=== PATIENT | female | born 1945 | race Caucasian/White ===

== ENCOUNTER 2024-09-17 13:55 | Inpatient (IN) | payer MEDICARE, OTHER ==
[~2024-09-17] VITALS: Ht 170.2 cm; Wt 59.0 kg
[2024-09-17] MEDS ORDERED: RISP1TAB7 PO (14:13)
[2024-09-17] MEDS ORDERED: DOCU100T2 PO (14:13)
[2024-09-17] MEDS ORDERED: LORA10TA7 PO (14:13)
[2024-09-17] MEDS ORDERED: DIVA500T4 PO (14:15)
[2024-09-17] MEDS ORDERED: DIVA250T4 PO (14:15)
[2024-09-17] MEDS ORDERED: PHEN100C12 PO (14:15)
[2024-09-17] MEDS ORDERED: AMLO10TA59 PO (14:16)
[2024-09-17] MEDS ORDERED: BENZ0.5T43 PO (14:16)
[2024-09-17] MEDS ORDERED: LOSA50TA39 PO (14:16)
[2024-09-17] MEDS ORDERED: MAGN400O6 PO (14:18)
[2024-09-17] MEDS ORDERED: DIPH-873 PO (14:18)
[2024-09-17] MEDS ORDERED: MAG360OR83 PO (14:18)
[2024-09-17] MEDS ORDERED: MULT1CAP34 PO (14:20)
[2024-09-17] MEDS ORDERED: ACET325T53 PO (14:20)
[2024-09-17] MEDS ORDERED: SENN-261 PO (14:20)
[2024-09-17] MEDS: FAMOTIDINE. 20 MG/2 ML VIAL IV ONE (14:43)
[2024-09-17] MEDS: IV NORMAL SALINE 500 ML BAG IV ONE (14:43)
[2024-09-17] MEDS ORDERED: diphenhydrAMINE 50 MG/1 ML VIAL ONE (14:43)
[2024-09-17] MEDS: diphenhydrAMINE 50 MG/1 ML VIAL IV ONE (14:43)
[2024-09-17] MEDS ORDERED: FAMOTIDINE. 20 MG/2 ML VIAL IV ONE (14:44)
[2024-09-17 14:59] LABS: PLATELET COUNT (AUTO) 271 K/uL (179-408); RED BLOOD CELL COUNT(AUTO) 3.68 MIL/uL (3.63-4.92); RED CELL DISTRIBUTION WIDTH 13.9 % (12.3-17.7); WHITE BLOOD COUNT (AUTO) 7.3 K/uL (3.8-11.8)
[2024-09-17 15:08] LABS: CREATININE 0.6 mg/dL (0.6-1.3); SODIUM SERUM 146 mmol/L (136-145); UREA NITROGEN, BLOOD 11 mg/dL (7-18)
[2024-09-17 15:14] LABS: ASPARTATE AMINOTRANSFERASE 23 U/L (15-37); TOTAL PROTEIN, SERUM 6.7 g/dL (6.4-8.2)
[2024-09-17 17:24] VITALS: BP 155/71; TEMP 98.2; O2SAT 98
[2024-09-17] MEDS ORDERED: DIVA-78 PO (18:24)
[2024-09-17] MEDS ORDERED: ACETAMINOPHEN 325 MG TABLET-SA PATIENTS-PAIN ONLY PO PRN (18:45)
[2024-09-17] MEDS ORDERED: MAG HYDROX/AL HYDROX/SIMETH 30 ML LIQUID UDC PO PRN (18:45)
[2024-09-17] MEDS ORDERED: MAGNESIUM HYDROXIDE 30 ML LIQUID UDC PO PRN (18:45)
[2024-09-17] MEDS: FUROSEMIDE 20 MG/2 ML VIAL IV ONE ×2 (19:00→20:39)
[2024-09-17] MEDS ORDERED: ACETAMINOPHEN 325 MG TABLET PO PRN (19:00)
[2024-09-17 19:18] VITALS: BP 150/75; TEMP 98.3; O2SAT 100
[2024-09-17] MEDS: BENZTROPINE MESYLATE 0.5 MG TABLET PO SCH (20:41)
[2024-09-17] MEDS: REMEDY ESSENTIAL ZINC PASTE 113 GM TOP SCH (20:41)
[2024-09-17] MEDS: ENOXAPARIN SODIUM 40 MG/0.4 ML DISP.SYRIN SQ SCH (20:41)
[2024-09-17] MEDS: PHENYTOIN SODIUM EXTENDED 100 MG CAPSULE.SA PO SCH (20:41)
[2024-09-18 06:24] VITALS: BP 147/64; TEMP 97.7; O2SAT 99
[2024-09-18 07:11] LABS: PLATELET COUNT (AUTO) 251 K/uL (179-408); RED BLOOD CELL COUNT(AUTO) 3.28 MIL/uL (3.63-4.92); RED CELL DISTRIBUTION WIDTH 13.4 % (12.3-17.7); WHITE BLOOD COUNT (AUTO) 5.4 K/uL (3.8-11.8)
[2024-09-18 08:00] LABS: ASPARTATE AMINOTRANSFERASE 8 U/L (15-37); CREATININE 0.4 mg/dL (0.6-1.3); SODIUM SERUM 147 mmol/L (136-145); TOTAL PROTEIN, SERUM 5.8 g/dL (6.4-8.2); UREA NITROGEN, BLOOD 9 mg/dL (7-18)
[2024-09-18 08:18] LABS: VALPROIC ACID 31 ug/mL (50-100)
[2024-09-18] MEDS ORDERED: MULTIVITAMINS PO SCH (09:00)
[2024-09-18] MEDS: AMLODIPINE 10 MG TABLET PO SCH (09:06)
[2024-09-18] MEDS: DIVALPROEX 250 MG TABLET.DR PO SCH (09:06)
[2024-09-18] MEDS: LOSARTAN POTASSIUM 50 MG TABLET PO SCH (09:06)
[2024-09-18] MEDS: DOCUSATE SODIUM 100 MG CAPSULE PO SCH (09:06)
[2024-09-18] MEDS: DIVALPROEX 500 MG TABLET.DR PO SCH (09:06)
[2024-09-18] MEDS: LORATADINE 10 MG TABLET PO SCH (09:07)
[2024-09-18] MEDS: MULTIVITAMINS,THERAPEUTIC TABLET PO SCH (09:07)
[2024-09-18] MEDS: SENNOSIDES 1 TABLET PO SCH (09:07)
[2024-09-18] MEDS: POTASSIUM CHLORIDE 20 MEQ TAB.PRT.SR PO ONE (09:15)
[2024-09-18 10:44] VITALS: BP 126/65; TEMP 98; O2SAT 98
[2024-09-18 16:14] VITALS: BP 116/64; TEMP 98.6; O2SAT 96
[2024-09-18 19:34] VITALS: BP 129/58; TEMP 98.1; O2SAT 95
[2024-09-19 06:01] VITALS: BP 133/72; TEMP 97.8; O2SAT 97
[2024-09-19 06:57] LABS: PLATELET COUNT (AUTO) 252 K/uL (179-408); RED BLOOD CELL COUNT(AUTO) 3.28 MIL/uL (3.63-4.92); RED CELL DISTRIBUTION WIDTH 13.7 % (12.3-17.7); WHITE BLOOD COUNT (AUTO) 6.6 K/uL (3.8-11.8)
[2024-09-19 07:13] LABS: CREATININE 0.5 mg/dL (0.6-1.3); SODIUM SERUM 149 mmol/L (136-145); UREA NITROGEN, BLOOD 8 mg/dL (7-18)
[2024-09-19 10:48] VITALS: BP 155/76; TEMP 97.8; O2SAT 99
[2024-09-19] MEDS: ENSURE ENLIVE (VAN) 240 ML LIQUID PO SCH (13:00)
[2024-09-19 16:04] VITALS: BP 150/72; TEMP 98; O2SAT 97
[2024-09-19] MEDS ORDERED: PERMETHRIN 5% CREAM 60 GM TUBE TP ONE (17:00)
[2024-09-19 19:30] VITALS: BP 140/68; TEMP 98.7; O2SAT 93
[2024-09-19] MEDS: MUPIROCIN 2% OINT 22 GM TUBE NS SCH (21:00)
[2024-09-19] MEDS: PERMETHRIN 5% CREAM 60 GM TUBE TP ONE (22:42)
[2024-09-19] MEDS: DIVALPROEX 250 MG TABLET.DR PO SCH (22:43)
[2024-09-19] MEDS: DIVALPROEX 500 MG TABLET.DR PO SCH (22:43)
[2024-09-19] MEDS ORDERED: MUPIROCIN 2% OINT 22 GM TUBE ONE (22:47)
[2024-09-20 05:43] VITALS: BP 121/62; TEMP 98.2; O2SAT 97
[2024-09-20 06:35] LABS: PLATELET COUNT (AUTO) 280 K/uL (179-408); RED BLOOD CELL COUNT(AUTO) 3.54 MIL/uL (3.63-4.92); RED CELL DISTRIBUTION WIDTH 13.7 % (12.3-17.7); WHITE BLOOD COUNT (AUTO) 7.3 K/uL (3.8-11.8)
[2024-09-20 06:52] LABS: ASPARTATE AMINOTRANSFERASE 13 U/L (15-37); CREATININE 0.5 mg/dL (0.6-1.3); SODIUM SERUM 144 mmol/L (136-145); TOTAL PROTEIN, SERUM 5.9 g/dL (6.4-8.2); UREA NITROGEN, BLOOD 10 mg/dL (7-18)
[2024-09-20 12:00] VITALS: BP 112/57; TEMP 97.6; O2SAT 96
[2024-09-20 13:00] VITALS: BP 112/57; TEMP 97.6; O2SAT 96
[2024-09-20] MEDS ORDERED: FURO20TA4 PO (15:56)
[2024-09-20] MEDS ORDERED: POTA10CA43 PO (15:56)
[2024-09-20] MEDS ORDERED: MENT113O TOP (15:56)
[2024-09-20] MEDS ORDERED: MUPI22OI2 NS (15:56)
[2024-09-20 16:00] VITALS: BP 126/62; TEMP 97.2; O2SAT 100
[2024-09-23 06:06] LABS: METHYLMALONIC ACID 70.0 nmol/L (0-378)
== END 2024-09-20 17:10 | DRG 606 ==
LOC: ER 13:55 → MEDSURG3 16:48
PROVIDERS: ADMIT Internal Medicine; ATTEND Internal Medicine
DX: B86 Scabies (principal); E43 Unspecified severe protein-calorie malnutrition; I50.31 Acute diastolic (congestive) heart failure; E87.0 Hyperosmolality and hypernatremia; F01.53 Vascular dementia, unspecified severity, with mood disturbance; G40.909 Epilepsy, unspecified, not intractable, without status epilepticus; R26.89 Other abnormalities of gait and mobility; E87.6 Hypokalemia; L29.9 Pruritus, unspecified; E88.09 Other disorders of plasma-protein metabolism, not elsewhere classified; Z68.20 Body mass index [BMI] 20.0-20.9, adult; I11.0 Hypertensive heart disease with heart failure; M41.9 Scoliosis, unspecified; Z22.322 Carrier or suspected carrier of Methicillin resistant Staphylococcus aureus; Z79.899 Other long term (current) drug therapy; E86.1 Hypovolemia; Z74.09 Other reduced mobility
CPT/HCPCS: 36415; 70450; 71045; 80164; 82378; 83605; 83735; 83921; 84100; 84443; 85025; 85730; 86592; 87040; 93307; A4606; A4663; G0378; J1200; J1308; J1650; J1938; J3490; J7040; J7512